=== PATIENT | female | born 1980 ===

== ENCOUNTER 2018-12-19 13:15 | Inpatient (IN) | payer OTHER ==
[~2018-12-19] VITALS: Ht 165.1 cm; Wt 66.7 kg
[~2018-12-19 13:15] MED LIST: IRON1 TAB PO; PRENATAL CAPLE1 EACH PO
[2018-12-19] MEDS ORDERED: ZYRTEC10 M3 PO (15:18)
== END 2018-12-24 15:30 | disposition home or self-care (01) | DRG 788 ==
LOC: OB/GYN 12-22 07:00 → O/R 12-22 12:30 → OB/GYN 12-22 13:15
PROVIDERS: ADMIT Obstetrics & Gynecology
PROC: 4A1HXCZ Monitoring of Products of Conception, Cardiac Rate, External Approach (ICD-10-PCS; 2018-12-22)
PROC: 10D00Z1 Extraction of Products of Conception, Low, Open Approach (ICD-10-PCS; principal; 2018-12-22 07:00)
DX: O82 Encounter for cesarean delivery without indication (principal); Z3A.39 39 weeks gestation of pregnancy; Z37.0 Single live birth

== ENCOUNTER 2022-09-17 06:00 | Day surgery (SDC) | payer OTHER ==
[~2022-09-17 06:00] MED LIST changes: +ZYRTEC10 M3 PO
== END 2022-09-17 19:30 | disposition home or self-care (01) ==
LOC: CIR.AMB 06:00
PROVIDERS: ATTEND Obstetrics & Gynecology
DX: O02.1 Missed abortion (principal); Z20.822 Contact with and (suspected) exposure to COVID-19; Z86.16 Personal history of COVID-19